=== PATIENT | female | born 1950 | race Caucasian/White ===

== ENCOUNTER 2024-08-26 12:47 | Emergency (ER) | payer OTHER, SELFPAY ==
[2024-08-26 12:49] VITALS: BP 145/78
[2024-08-26 13:06] VITALS: BMI 21.1
[2024-08-26 13:18] VITALS: BP 170/74
[2024-08-26 14:00] VITALS: BP 159/80
[2024-08-26 15:35] LABS: % Basophils 0.4 % (0-2); % Eosinophils 0.6 % (0-6); % Immature Granulocytes 0.3 % (0-0.5); % Lymphocytes 17.8 % (20.5-51.1); % Monocytes 5.6 % (1.7-9.3); % Neutrophils 75.3 % (42.2-75.2); Absolute Eosinophils 0.1 10^3/uL (0-0.7); Absolute Lymphocytes 1.4 10^3/uL (1.2-3.4); Absolute Monocytes 0.4 10^3/uL (0.1-0.6); Absolute Neutrophils 5.9 10^3/uL (1.4-6.5); Hematocrit 34.8 % (37.0-47.0); Hemoglobin 11.8 g/dL (12.0-16.0); Mean Corp Hgb Conc. 33.9 g/dL (33.0-37.0); Mean Corpuscular Hgb 30.6 pg (27.0-31.0); Mean Corpuscular Volume 90.2 fL (81.0-99.0); Mean Platelet Volume 8.6 fL (7.4-10.4); Nucleated Red Blood Cells % 0 %; Platelet Count 165 10^3/uL (130-400); Red Blood Cell Count 3.86 10^6/uL (4.20-5.40); Red Cell Dist. Width 13.7 % (11.5-14.5); White Blood Cell Count 7.8 10^3/uL (4.8-10.8)
[2024-08-26 15:48] LABS: Blood Urea Nitrogen 12 mg/dl (7-17); Calcium 8.1 mg/dl (8.4-10.2); Carbon Dioxide 25 mmol/L (22-30); Chloride 117 mmol/L (98-107); Estimated Creatinine Clearance 79 ml/min; Glucose 88 mg/dl (70-99); Potassium 3.9 mmol/L (3.5-5.1); Sodium 144 mmol/L (135-145); eGFR > 60.00
[2024-08-26 16:34] VITALS: BP 136/74
--- NOTE | 2024-08-26 16:36 | ED.GENMED ---
History of Present Illness
General
Chief Complaint: Fall
Source: patient and family
Exam Limitations: none
Time Seen by Provider: 08/26/24 13:40
Nursing documentation reviewed up to this point in time: agreed with
History of Present Illness
History of Present Illness:
74-year-old female presenting to the emergency department after tripping on the sidewalk and [place] she had the right side of her face and scraped up her knees as well as her right hand. Able to stand initially felt okay did not blackout but very
lightheaded when EMS arrived and she stood up. She did not fully lose consciousness. Not on blood thinners denies additional concerns at this point. Feels much improved.
Review of Systems
Review of Systems
Allergies reviewed?: Yes
All Other Systems: ROS reviewed and negative except as documented in HPI and ROS
Phy Exam
Physical Exam
Physical Exam:
GENERAL: Alert , in no apparent distress
EYE: pupils equal and reactive normal extraocular movements
NECKt: Supple, no significant adenopathy.
ENT: Slight bruising to the right cheek region, o/p clr, mmm.
CARDIAC: Regular rate and rhythm .
LUNGS: Clear breath sounds bilaterally, no acute respiratory distress, no wheezes/rales/rhonchi
ABDOMEN: Soft, without focal tenderness, no r/g, no cvat
NEUROLOGICAL: Alert and oriented, no focal neuro deficits
SKIN: Warm and dry, skin intact.
MUSCULOSKELETAL: No edema, well perfused.
PSYCH: Normal and appropriate interaction.
Course
Orders/Labs/Results
Orders:
Orders
08/26/24 12:58
EKG [Electrocardiogram (*1)] Urgent
Reason for Study: Syncope
EKG- Treatment ONCE
08/26/24 14:51
CT Cervical Spine W/o Iv Contr Urgent
Comment:
Reason For Exam: fall hit head
CT Facial Bones W/o Iv Contras Urgent
Comment:
Reason For Exam: fall hit face
CT Head W/o Iv Contrast Urgent
Comment:
Reason For Exam: fall head strike
CR Hand - Right Min 3 Views Urgent
Comment:
Reason For Exam: hand pain swelling after fall
08/26/24 15:21
BMP [Basic Metabolic Panel] Urgent
CBC/With Diff [Complete Blood Count/With Diff] Urgent
Abnormal Lab Results
08/26/24
15:21
RBC 3.86 L 10^6/uL
(4.20-5.40)
Hgb 11.8 L g/dL
(12.0-16.0)
Hct 34.8 L %
(37.0-47.0)
Neutrophils % 75.3 H %
(42.2-75.2)
Lymphocytes % 17.8 L %
(20.5-51.1)
Chloride 117 H mmol/L
(98-107)
Creatinine 0.5 L mg/dL
(0.6-1.0)
Calcium 8.1 L mg/dl
(8.4-10.2)
08/26/24 15:21
08/26/24 15:21
Vital Signs
Initial and Last Documented VS:
Initial Vital Signs
Temp Pulse Resp BP Pulse Ox
97.6 F 73 18 145/78 99
08/26/24 12:49 08/26/24 12:49 08/26/24 12:49 08/26/24 12:49 08/26/24 12:49
Last Documented Vital Signs
Temp Pulse Resp BP Pulse Ox
97.6 F 80 16 136/74 96
08/26/24 12:49 08/26/24 16:35 08/26/24 16:35 08/26/24 16:34 08/26/24 16:35
MDM/Problems Addressed
MDM/Problems Addressed:
74-year-old female presenting to the emergency department today with concerns of a trip and fall prior to arrival. Also had a near syncopal episode when EMS arrived when she was going to stand. She otherwise feels well at this point. Vital signs
normal on arrival labs are unremarkable patient generally well-appearing normal neurologic evaluation. Head face and neck CT without emergent findings. Hand x-ray without signs of fracture. No evidence of any emergent pathology asymptomatic
throughout ER stay at this point stable for discharge. Return precautions given.
*Critical Care Note
Total Time (30-74mins, 75-104mins- exclusive of procedures): Not Applicable
ED Attending Note
-
Portions of this chart may have been created with voice recognition software.� Occasional wrong word or��sound alike� substitutions may have occurred due to the inherent limitations of voice recognition software.
Discharge Plan
Departure
Patient Disposition: Home (Routine Discharge)
Date of Disposition: 08/26/24
Time of Disposition: 16:38
Patient with high blood pressure during this ER visit?: No
Condition: Good
Covid-19: Not Applicable
Discharge Problem:
Fall, Minor closed head injury
Instructions: Preventing falls in adults
Referrals:
NONE,* [Family Provider] -
Activity Restrictions/Additional Instructions:
You came to the emergency department today with concerns after a fall. Here you had a reassuring assessment. Please follow close with the primary care doctor. Return for any worsening, new or concerning symptoms.
Interventions
Interventions:
*Risk Screen - Suicide Last Done: 08/26/24 12:49
*General Assessment Last Done: 08/26/24 12:49
*Neglect/Abuse Screening Last Done: 08/26/24 13:04
*ED- Fall Risk Assessment Last Done: 08/26/24 13:04
*ED COVID-19 Vaccine History Last Done: 08/26/24 13:04
ED-Musculoskeletal Assessment Last Done: 08/26/24 13:08
ED- Neurological Assessment Last Done: 08/26/24 13:08
ED-Skin Assessment Last Done: 08/26/24 13:08
Discharge Date and Time
Print Language: POLISH
== END 2024-08-26 16:49 | disposition home or self-care (01) ==
LOC: EMR 12:47
PROVIDERS: Physician Assistant; EMERGENCY PHYSICIAN Student in an Organized Health Care Education/Training Program
DX: R55 Syncope and collapse (principal); S09.90XA Unspecified injury of head, initial encounter; S00.83XA Contusion of other part of head, initial encounter; S90.32XA Contusion of left foot, initial encounter; S90.31XA Contusion of right foot, initial encounter; S60.221A Contusion of right hand, initial encounter; S40.811A Abrasion of right upper arm, initial encounter; M79.89 Other specified soft tissue disorders; W01.0XXA Fall on same level from slipping, tripping and stumbling without subsequent striking against object, initial encounter; M06.9 Rheumatoid arthritis, unspecified
CPT/HCPCS: 99285; 70450; 70486; 72125; 73130; 80048; 85025; 93005